=== PATIENT | male | born 1950 | race Two or more races ===

== ENCOUNTER 2017-04-22 10:26 | Emergency (ER) | payer OTHER ==
[~2017-04-22] VITALS: Ht 177.8 cm; Wt 58.1 kg
[~2017-04-22 10:26] MED LIST: ALBUTEROL SULF8.5 GM INH; CLARITIN10 M2 ORAL; METOCLOPRA10 MG/10 M ORAL; PANTOPRAZOLE SO40 MG ORAL; ZITHROMAX250 MG ORAL
[2017-04-22] MEDS ORDERED: NKM (10:36)
--- NOTE | 2017-04-22 10:54 | Emergency Room Report ---
History of Present Illness General Chief Complaint: Upper Respiratory Illness Source: Patient Present Illness HPI Patient presents with reports of fever for the past one to 2 days also complains of increased cough over the past 3 days Denies any chest pain or pleurisy however with increased cough he has had pain to the bilateral lower rib cage area denies any recent travel He has a mild sore throat Denies any abdominal pain denies any posterior neck pain or photophobia Allergies: Coded Allergies: No Known Allergies (Unverified , 10/10/13) Patient History Past Medical History: see triage record Pertinent Family History: none Reviewed Nursing Documentation: PMH: Agreed, PSxH: Agreed Nursing Documentation-PMH Past Medical History: No Stated History Hx Gastrointestinal Problems: Yes Review of Systems All Other Systems: negative except mentioned in HPI Physical Exam Vital Signs Date Time Temp Pulse Resp B/P (MAP) Pulse Ox O2 Delivery O2 Flow Rate FiO2 04/22/17 10:32 98.8 96 17 123/79 98 Room Air Sp02 EP Interpretation: reviewed, normal General Appearance: well appearing, no apparent distress Head: normocephalic, atraumatic Eyes: bilateral eye PERRL, bilateral eye EOMI ENT: hearing grossly normal, normal pharynx, TMs + canals normal, uvula midline Neck: full range of motion, supple, no meningismus, no bony tend Respiratory: lungs clear, normal breath sounds, no rhonchi, no respiratory distress, no retraction, no accessory muscle use Cardiovascular #1: normal peripheral pulses, regular rate, rhythm, no edema, no gallop, no JVD, no murmur Gastrointestinal: normal bowel sounds, non tender, soft, no mass, no organomegaly, non-distended, no guarding, no hernia, no pulsatile mass, no rebound Musculoskeletal: normal inspection Neurologic: oriented x3, responsive, line department supervisor III-XII nml as tested, motor strength/ tone normal, sensory intact Psychiatric: mood/affect normal Skin: normal color, no rash, warm/dry, palpation normal Lymphatic: normal inspection, no adenopathy Medical Decision Making Diagnostic Impression: Primary Impression: Flu syndrome ER Course Multiple differentials considered Given a high fever and the cough x-ray imaging was obtained no obvious acute pathology Given the patient's reevaluation and general complaints along with exam appears to have findings in line with flulike symptoms Given the early presentation patient will be attempted on Tamiflu Last Vital Signs Date Time Temp Pulse Resp B/P (MAP) Pulse Ox O2 Delivery O2 Flow Rate FiO2 04/22/17 10:32 98.8 96 17 123/79 98 Room Air Status: unchanged Disposition: HOME, SELF-CARE Condition: Stable Scripts Guaifenesin/Dextromethorphan (ROBITUSSIN COUGH-CHEST DM LIQ) 237 Ml Liquid 10 ML PO QHS for 5 Days, ML Prov: KENDRA VELARDE D.O. 04/22/17 Albuterol Sulfate* (ALBUTEROL SULFATE MDI*) 8.5 Gm Hfa.aer.ad 2 PUFF INH Q4H Y for cough/wheezing, #1 EA 0 Refills Prov: KENDRA VELARDE D.O. 04/22/17 Oseltamivir Phosphate (Tamiflu) 75 Mg Capsule 75 MG ORAL TWICE A DAY for 5 Days, CAP Prov: KENDRA VELARDE D.O. 04/22/17 Additional Instructions: Patient is provided with the discharge instructions notified to follow up with primary doctor in the next 2-3 days otherwise return to the er with any worsening symptoms. Please note that this report is being documented using [employer] technology. This can lead to erroneous entry secondary to incorrect interpretation by the dictating instrument. KENDRA VELARDE D.O. Apr 22, 2017 10:54
[2017-04-22] MEDS ORDERED: TAMIFLU75 MG ORAL (11:09)
[2017-04-22] MEDS ORDERED: ROBITUSSIN COU237 M1 PO (11:09)
[2017-04-22] MEDS ORDERED: ALBUTEROL SULF8.5 GM INH (11:09)
[2017-04-22 11:14] VITALS: BP 125/78
--- NOTE | 2017-04-25 10:27 | Diagnostic Imaging Report ---
Indication: Shortness of breath Technique: XRAY Chest 1v Comparison: 12/19/2013 Findings: The cardiomediastinal silhouette is within normal limits. There is no focal consolidation, pneumothorax or pleural effusion. Osseous structures demonstrate no acute abnormality. Impression: No acute cardiopulmonary disease.
== END 2017-04-22 11:14 | disposition home or self-care (01) ==
LOC: EMR 10:45
DX: J11.1 Influenza due to unidentified influenza virus with other respiratory manifestations (principal)
CPT/HCPCS: 71045; 99283

== ENCOUNTER 2017-09-30 12:53 | Emergency (ER) | payer OTHER ==
[~2017-09-30] VITALS: Ht 177.8 cm; Wt 54.4 kg
[~2017-09-30 12:53] MED LIST changes: +NKM; +ROBITUSSIN COU237 M1 PO; +TAMIFLU75 MG ORAL
[2017-09-30 13:00] VITALS: BP 148/85
--- NOTE | 2017-09-30 13:24 | Emergency Room Report ---
History of Present Illness General Chief Complaint: Upper Respiratory Illness Source: Patient, Medical Record Present Illness HPI 66 YO Male presents to the ED c/o Fevers, cough and increased phlegm x 2 days. Denies sore throat, ear pain, lethargy, neck pain/stiffness, irritability, photophobia dehydration, N/V/D. Denies Cp, Palpitations, LOC, AMS, seizures, paresthesias, or changes in Hearing or vision, no Sudden severe TERAN. Denies hx of smoking, asthma or COPD. 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 Allergies: Coded Allergies: No Known Allergies (Unverified , 10/10/13) Patient History Past Medical History: see triage record Past Surgical History: none Pertinent Family History: none Reviewed Nursing Documentation: PMH: Agreed; PSxH: Agreed Nursing Documentation-PMH Past Medical History: No History, Except For Hx Gastrointestinal Problems: Yes Review of Systems All Other Systems: negative except mentioned in HPI Physical Exam Vital Signs Date Time Temp Pulse Resp B/P (MAP) Pulse Ox O2 Delivery O2 Flow Rate FiO2 09/30/17 12:56 97.6 74 18 148/85 96 Room Air 97.5 Sp02 EP Interpretation: reviewed, normal General Appearance: no apparent distress, alert, GCS 15, non-toxic Head: normocephalic, atraumatic ENT: hearing grossly normal, normal voice Neck: full range of motion Respiratory: chest non-tender, lungs clear, normal breath sounds, no rhonchi, no respiratory distress, no wheezing, speaking full sentences Cardiovascular #1: regular rate, rhythm, no edema Musculoskeletal: back normal, gait/station normal, normal range of motion, non- tender Neurologic: alert, oriented x3, responsive, motor strength/tone normal, sensory intact, speech normal, grossly normal Psychiatric: judgement/insight normal Skin: normal color, no rash, warm/dry, well hydrated Lymphatic: no adenopathy Medical Decision Making PA Attestation Dr. Estevez is my supervising Physician whom patient management has been discussed with. Diagnostic Impression: Primary Impression: Bronchitis ER Course 66 YO Male presents to the ED c/o Fevers, cough and increased phlegm x 2 days. Denies sore throat, ear pain, lethargy, neck pain/stiffness, irritability, photophobia dehydration, N/V/D. Denies Cp, Palpitations, LOC, AMS, seizures, paresthesias, or changes in Hearing or vision, no Sudden severe TERAN. Denies hx of smoking, asthma or COPD. 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 Ddx considered but are not limited to URI, pneumonia, PE, strep pharyngitis, meningitis. Vital signs: Pt.is afebrile VS are WNL H&PE are most consistent with bronchitis ORDERS: none required at this time, the diagnosis is clinical ED INTERVENTIONS: None required at this time. DISCHARGE: At this time pt. is stable for d/c to home. Will provide printed patient care instructions, and any necessary prescriptions. Care plan and follow up instructions have been discussed with the patient prior to discharge. Chest X-Ray Diagnostic Results Chest X-Ray Diagnostic Results : Chest X-Ray Ordered: Yes # of Views/Limited/Complete: 1 View Indication: Other - fevers and productive cough EP Interpretation: Yes CLOTILDE Xray: Interpretation reviewed, by supervising MD, and agrees with findings. Interpretation: no consolidation, no effusion, no pneumothorax, no acute cardiopulmonary disease Impression: No acute disease Electronically Signed by: Petty Lenz PA-C Last Vital Signs Date Time Temp Pulse Resp B/P (MAP) Pulse Ox O2 Delivery O2 Flow Rate FiO2 09/30/17 12:56 97.6 74 18 148/85 96 Room Air 97.5 Disposition: HOME, SELF-CARE Condition: Stable Scripts Loratadine (CLARITIN) 10 Mg Tablet 10 MG ORAL DAILY, #20 TAB Prov: Petty Lenz 09/30/17 Guaifenesin (Guaifenesin) 1,200 Mg Tab.er.12h 1200 MG PO BID, #20 TAB Prov: Petty Lenz 09/30/17 Codeine/Promethazine Hcl* (PROMETHAZINE-CODEINE SYRUP*) 118 Ml Syrup 5 ML ORAL Q6H PRN for For Cough, #120 ML 0 Refills Prov: Petty Lenz 09/30/17 Patient Instructions: Acute Bronchitis, [id number] Additional Instructions: Take medications as directed. Follow up with a Primary Care Provider in 3-5 days, even if your symptoms have resolved. --Please review list of primary care clinics, if you do not already have a primary care provider Return sooner to ED if new symptoms occur, or current symptoms become worse. Do not drink alcohol, drive, or operate heavy machinery while taking Cough Syrup as this may cause drowsiness. - Please note that this Emergency Department Report was dictated using [employer] technology software, occasionally this can lead to erroneous entry secondary to interpretation by the dictation equipment. Petty Lenz Sep 30, 2017 13:24
[2017-09-30] MEDS ORDERED: CLARITIN10 MG ORAL (13:26)
[2017-09-30] MEDS ORDERED: PROMETHAZINE-C118 M1 ORAL (13:26)
[2017-09-30] MEDS ORDERED: GUAIFENESIN1200 MG PO (13:26)
[2017-09-30 13:35] VITALS: BP 144/80
--- NOTE | 2017-10-01 12:06 | Diagnostic Imaging Report ---
Indication: Pain Technique: XRAY Chest 1v Comparison: 04/22/2017 Findings: Heart size and mediastinal contours are within normal limits given technique. There is no focal consolidation, pneumothorax or pleural effusion. Osseous structures demonstrate no acute abnormality. Impression: No radiographic evidence of acute cardiopulmonary disease.
== END 2017-09-30 13:35 | disposition home or self-care (01) ==
LOC: EMR 13:10
DX: J40 Bronchitis, not specified as acute or chronic (principal)
CPT/HCPCS: 71045; 99284

== ENCOUNTER 2018-06-24 20:43 | Emergency (ER) | payer MEDICARE, OTHER ==
[~2018-06-24] VITALS: Ht 177.8 cm; Wt 58.1 kg
[~2018-06-24 20:43] MED LIST changes: +CLARITIN10 MG ORAL; +GUAIFENESIN1200 MG PO; +PROMETHAZINE-C118 M1 ORAL
[2018-06-24] MEDS ORDERED: NKM (21:09)
--- NOTE | 2018-06-24 21:31 | Emergency Room Report ---
History of Present Illness General Chief Complaint: Headache Source: Patient Present Illness HPI Patient presents with reports of headache Ongoing since last week Patient reports that he started having some dizziness as well today Denies any chest pain denies any shortness of breath Denies any fevers there was a report of the neck pain however patient points to the right posterior aspect of the SCM and reports that he has had that pain over the past several years Denies any focal weakness Denies any vomiting or diarrhea Denies any visual changes Allergies: Coded Allergies: No Known Allergies (Unverified , 10/10/13) Patient History Past Medical History: see triage record Pertinent Family History: none Reviewed Nursing Documentation: PMH: Agreed; PSxH: Agreed Nursing Documentation-PMH Hx Gastrointestinal Problems: Yes Review of Systems All Other Systems: negative except mentioned in HPI Physical Exam Vital Signs Date Time Temp Pulse Resp B/P (MAP) Pulse Ox O2 Delivery O2 Flow Rate FiO2 06/24/18 21:05 98.1 73 16 153/94 99 Room Air Sp02 EP Interpretation: reviewed, normal General Appearance: well appearing, no apparent distress Head: normocephalic, atraumatic Eyes: bilateral eye PERRL, bilateral eye EOMI ENT: hearing grossly normal, normal pharynx, TMs + canals normal, uvula midline Neck: full range of motion, supple, no meningismus, no bony tend Respiratory: lungs clear, normal breath sounds, no rhonchi, no respiratory distress, no retraction, no accessory muscle use Cardiovascular #1: normal peripheral pulses, regular rate, rhythm, no edema, no gallop, no JVD, no murmur Gastrointestinal: normal bowel sounds, non tender, soft, no mass, no organomegaly, non-distended, no guarding, no hernia, no pulsatile mass, no rebound Genitourinary: no CVA tenderness Musculoskeletal: normal inspection Neurologic: oriented x3, responsive, supervisor spring up III-XII nml as tested, motor strength/ tone normal, sensory intact Psychiatric: mood/affect normal Skin: normal color, no rash, warm/dry, palpation normal Lymphatic: normal inspection, no adenopathy Medical Decision Making Diagnostic Impression: Primary Impression: Headache Additional Impression: Dizziness ER Course Patient is a fairly complex patient with multiple differential to consideration including but not limited to cardiac cardiopulmonary, neurological, neurosurgical, infectious and vascular emergencies CT head does not show any acute pathology There is some calcification in the basal ganglia This can be further evaluated with MRI as outpatient Patient's blood work is normal The neck pain patient complains of is fairly specific to the right side of his neck He now also describes some radiculopathy to the shoulder When examining the patient's ears he does move his head from side to side without any meningismus or other discomfort At this time stable for close outpatient follow-up Labs Test 06/24/18 21:00 White Blood Count 5.2 K/UL (4.8-10.8) Red Blood Count 4.71 M/UL (4.70-6.10) Hemoglobin 13.6 G/DL (14.2-18.0) Hematocrit 41.3 % (42.0-52.0) Mean Corpuscular Volume 88 FL (80-99) Mean Corpuscular Hemoglobin 28.9 PG (27.0-31.0) Mean Corpuscular Hemoglobin Concent 33.0 G/DL (32.0-36.0) Red Cell Distribution Width 10.9 % (11.6-14.8) Platelet Count 215 K/UL (150-450) Mean Platelet Volume 6.7 FL (6.5-10.1) Neutrophils (%) (Auto) 41.1 % (45.0-75.0) Lymphocytes (%) (Auto) 44.1 % (20.0-45.0) Monocytes (%) (Auto) 8.8 % (1.0-10.0) Eosinophils (%) (Auto) 4.8 % (0.0-3.0) Basophils (%) (Auto) 1.2 % (0.0-2.0) Sodium Level 139 MMOL/L (136-145) Potassium Level 4.1 MMOL/L (3.5-5.1) Chloride Level 102 MMOL/L (98-107) Carbon Dioxide Level 30 MMOL/L (21-32) Anion Gap 7 mmol/L (5-15) Blood Urea Nitrogen 11 mg/dL (7-18) Creatinine 0.8 MG/DL (0.55-1.30) Estimat Glomerular Filtration Rate > 60 mL/min (>60) Glucose Level 96 MG/DL (74-106) Calcium Level 9.3 MG/DL (8.5-10.1) Total Bilirubin 0.4 MG/DL (0.2-1.0) Aspartate Amino Transf (AST/SGOT) 25 U/L (15-37) Alanine Aminotransferase (ALT/SGPT) 30 U/L (12-78) Alkaline Phosphatase 100 U/L (46-116) Total Creatine Kinase 232 U/L (26-308) Creatine Kinase MB 4.5 NG/ML (0.0-3.6) Creatine Kinase MB Relative Index 1.9 Troponin I 0.000 ng/mL (0.000-0.056) Total Protein 7.5 G/DL (6.4-8.2) Albumin 4.2 G/DL (3.4-5.0) Globulin 3.3 g/dL Albumin/Globulin Ratio 1.3 (1.0-2.7) EKG Diagnostic Results Rate: normal Rhythm: NSR ST Segments: no acute changes Rhythm Strip Diag. Results EP Interpretation: yes Rate: 66 Rhythm: NSR, no PVC's, no ectopy CT/MRI/US Diagnostic Results CT/MRI/US Diagnostic Results : Impression CT head: Calcification basal ganglia, no acute disease Last Vital Signs Date Time Temp Pulse Resp B/P (MAP) Pulse Ox O2 Delivery O2 Flow Rate FiO2 06/24/18 21:05 98.1 73 16 153/94 99 Room Air Status: improved Disposition: HOME, SELF-CARE Condition: Improved Scripts Meclizine Hcl* (MECLIZINE*) 25 Mg Tablet 25 MG ORAL BID, #20 TAB Prov: Wanda Estevez DO 06/24/18 Additional Instructions: Patient is provided with the discharge instructions notified to follow up with primary doctor in the next 2-3 days otherwise return to the er with any worsening symptoms. Please note that this report is being documented using [employer] technology. This can lead to erroneous entry secondary to incorrect interpretation by the dictating instrument. Wanda Estevez DO Jun 24, 2018 21:31
[2018-06-24 21:44] VITALS: BP 153/94
--- NOTE | 2018-06-24 21:46 | NUR ---
ED Nurse Note: Patient presents to ED c/o headache for 1 week. Patient reports right side neck pain for 2 years. Patient states headache has gotten worse today. Patient states he feels dizzy. Patient AOx4, VSS, ambulatory with steady gait, no s/s of acute distress noted at this time. Patient seen by ERMD at bedside. Patient has daughter at bedside.
[2018-06-24 22:22] LABS: ANION GAP 7 mmol/L (5-15); BLOOD UREA NITROGEN 11 mg/dL (7-18); CALCIUM 9.3 MG/DL (8.5-10.1); CARBON DIOXIDE 30 MMOL/L (21-32); CHLORIDE 102 MMOL/L (98-107); CREATININE 0.8 MG/DL (0.55-1.30); POTASSIUM 4.1 MMOL/L (3.5-5.1); SODIUM 139 MMOL/L (136-145)
[2018-06-24 22:23] LABS: BASOPHILS % (AUTO) 1.2 % (0.0-2.0); EOSINOPHILS % (AUTO) 4.8 % (0.0-3.0); HEMATOCRIT 41.3 % (42.0-52.0); HEMOGLOBIN 13.6 G/DL (14.2-18.0); LYMPHOCYTES % (AUTO) 44.1 % (20.0-45.0); MEAN CORPUSCULAR VOLUME 88 FL (80-99); MONOCYTES % (AUTO) 8.8 % (1.0-10.0); NEUTROPHILS % (AUTO) 41.1 % (45.0-75.0); PLATELET COUNT 215 K/UL (150-450); RED BLOOD COUNT 4.71 M/UL (4.70-6.10); RED CELL DISTRIBUTION WIDTH 10.9 % (11.6-14.8); WHITE BLOOD COUNT 5.2 K/UL (4.8-10.8)
[2018-06-24 22:37] LABS: ALANINE AMINOTRANSFERASE 30 U/L (12-78); ALBUMIN 4.2 G/DL (3.4-5.0); ALBUMIN/GLOBULIN RATIO 1.3 (1.0-2.7); ALKALINE PHOSPHATASE 100 U/L (46-116); ASPARTATE AMINO TRANSFERASE 25 U/L (15-37); BILIRUBIN,TOTAL 0.4 MG/DL (0.2-1.0); CKMB 4.5 NG/ML (0.0-3.6); CREATINE KINASE 232 U/L (26-308)
[2018-06-24] MEDS ORDERED: MECLIZINE HCL25 MG ORAL (23:04)
[2018-06-24 23:45] VITALS: BP_SYST 142; BP_SYST 153; BP_DIAS 77; BP_DIAS 94
--- NOTE | 2018-06-24 23:45 | NUR ---
ED Nurse Note: Patient cleared for discharge by ERMGabrielle. Patient AOx4, VSS, ambulatory with steady gait, no s/s of acute distress noted at this time. patient provided with discharge instructions and medication prescriptions. Patient verbalized understanding. patient took all personal belongings with him. Patient ID band and IV access removed. Patient has daughter at bedside to take him home. Patient instructed to follow up with PCP in 1 week.
--- NOTE | 2018-06-25 12:31 | Diagnostic Imaging Report ---
Indications: Headache and dizziness Technique: Spiral acquisitions obtained through the brain. Angled axial and coronal 5 x 5 mm slices were reconstructed. Total dose length product 1369.05 mGycm. CTDI vol(s) 70.38 mGy. Dose reduction achieved using automated exposure control Comparison: None. Findings: No acute intrarenal hemorrhage or edema. No mass effect nor midline shift. Normal genao-white differentiation. Normal-sized ventricles and extra-axial CSF spaces. Visualized orbits and sinuses are unremarkable. The mastoids are clear. The calvarium is intact Impression: Negative This agrees with the preliminary interpretation provided overnight by [facility] teleradiology service. The CT scanner at [facility] is accredited by the [employer] and the scans are performed using protocols designed to limit radiation exposure to as low as reasonably achievable to attain images of sufficient resolution adequate for diagnostic evaluation.
--- NOTE | 2018-06-25 17:00 | Cardiology Report ---
APPROVED REPORT EKG Measurement Heart [id number] Normal sinus rhythm Normal ECG
== END 2018-06-24 23:45 | disposition home or self-care (01) ==
LOC: EMR 21:21
DX: R51 Headache (principal); R42 Dizziness and giddiness
CPT/HCPCS: 36415; 70450; 80053; 82550; 82553; 84484; 85025; 93005; 99284